=== PATIENT | female | born 1950 | race Caucasian/White ===

== ENCOUNTER 2017-01-19 15:28 | Emergency (ER) | payer MEDICARE ==
[~2017-01-19] VITALS: Ht 157.5 cm; Wt 77.2 kg
[~2017-01-19 15:28] MED LIST: ATEN-102 PO; BIOT5000 PO; CO Q100C PO; CRANCAP11 PO; FEXO60TA PO; GLUCPOW27 PO; ISOMCAP PO; LISI-366 PO; LOTRCRE TOP; MELA5TAB8 PO; OMEP20TA PO; TAB-TAB PO; TAMS0.4C67 PO; ZYRT10TA12 PO
[2017-01-19 15:39] VITALS: BP 103/67; PULSE 62; RESP 18; TEMP 97.7; O2SAT 98
[2017-01-19] MEDS ORDERED: predniSONE 50 MG TAB PO ONE (16:15)
[2017-01-19] MEDS ORDERED: diphenhydrAMINE HCL 25 MG CAP PO ONE (16:15)
--- NOTE | 2017-01-19 16:32 | PD ---
HPI Chief Complaint: Facial Pain or Swelling Time Seen by Provider: 16:05 Travel History International Travel<30 days: No Contact w/Intl Traveler<30days: No Traveled to known affect area: No History of Present Illness HPI Patient is a 66-year-old female who comes in complaining of swelling to her face and her neck after eating lunch today. She says she was eating a ham sandwich and some potato chips when she felt like the sides of her neck started swelling in her throat started swelling. She denies choking or feeling like anything got stuck in her throat. She says she then felt nauseous and cramping of her abdomen. She says this has never happened before. She says she does not think that she ever had any trouble breathing. She says that her lips were swollen at the time as well. She says this happened just prior to coming in. Since that time, she feels like her symptoms have improved, but still feels some swelling to left side of her neck. She says that last night while walking her dog, she's felt like something bit her on the left side of her neck. [facility] Past Medical History Arthritis: Yes Diabetes: Yes Patient Takes Glucophage: No GERD: Yes Hypertension: Yes Kidney Stones: Yes Tetanus Vaccination: Unknown ?: Not Menopausal: Yes Tubal Ligation: Yes Past Surgical History Appendectomy: Yes Cholecystectomy: Yes Hysterectomy: Yes Other Surgery: Yes (kidney stone removal) Social History Alcohol Use: Yes (OCCASIONAL) Tobacco Use: No Substance Use: No Allergies-Medications (Allergen,Severity, Reaction): Coded Allergies: penicillin G (Unverified Allergy, Unknown, 01/19/17) Reported Meds & Prescriptions Reported Meds & Active Scripts Active Review of Systems Except as stated in HPI: all other systems reviewed are Neg General / Constitutional: No: Fever, Chills Eyes: No: Blurred Vision HENT: No: Headaches, Lightheadedness, Neck Stiffness Cardiovascular: No: Chest Pain or Discomfort Respiratory: No: Shortness of Breath Gastrointestinal: Positive: Nausea, No: Vomiting, Abdominal Pain Musculoskeletal: No: Myalgias, Pain Skin: No Rash, No Itching Neurologic: No: Weakness, Dizziness Physical Exam Narrative GENERAL: Awake and alert, in no acute distress. SKIN: Focused skin assessment warm/dry. No rash or bites seen. HEAD: Atraumatic. Normocephalic. EYES: Pupils equal and round. No scleral icterus. ENT: Mucous membranes pink and moist. No swelling of the lips or tongue or posterior pharynx. NECK: Trachea midline. No JVD. CARDIOVASCULAR: Regular rate and rhythm. No murmur appreciated. RESPIRATORY: No accessory muscle use. Clear to auscultation. Breath sounds equal bilaterally. GASTROINTESTINAL: Abdomen soft, non-tender, nondistended. MUSCULOSKELETAL: No obvious deformities. No clubbing. No cyanosis. No edema. NEUROLOGICAL: Awake and alert. No obvious cranial nerve deficits. Motor grossly within normal limits. Normal speech. PSYCHIATRIC: Appropriate mood and affect; insight and judgment normal. Data Data Last Documented VS Vital Signs Date Time Temp Pulse Resp B/P (MAP) Pulse Ox O2 Delivery O2 Flow Rate FiO2 01/19/17 15:39 97.7 62 18 103/67 (79) 98 Orders Orders Diphenhydramine (Benadryl) (01/19/17 16:15) Prednisone (Deltasone) (01/19/17 16:15) Ondansetron Odt (Zofran Odt) (01/19/17 16:45) MDM Medical Decision Making Medical Screen Exam Complete: Yes Emergency Medical Condition: Yes Medical Record Reviewed: Yes Differential Diagnosis Allergic reaction versus insect bite versus viral illness Narrative Course Patient is a 66-year-old female comes in complaining of swelling to her neck and face after eating lunch. She says the swelling has improved, her significant other states he can still see swelling to left side of her neck. There is no evidence of swelling of her airway or any airway compromise. Patient given a Benadryl and a dose of prednisone. Observed in the emergency department. Patient had no further issues with swelling. She never had any airway issues. She reports feeling better. She'll be discharged with a short course of steroids. She is advised this may raise her blood sugar, and to monitor this. Advised to take Benadryl as needed for itching or allergic reaction. Advised to monitor what she consumes to see if she develops a reaction. Advised follow- up with her doctor. Advised to return to the ED as needed for any worsening symptoms. Diagnosis Primary Impression: Allergic reaction Qualified Codes: T78.40XA - Allergy, unspecified, initial encounter Patient Instructions: General Allergic Reaction (ED), General Instructions Additional Instructions: Monitor what you are eating and drinking to see if he develops a reaction to it. Return immediately if you have any swelling to her face or mouth or any difficulty breathing. Take the steroids starting tomorrow. Take Benadryl as needed for any symptoms of allergies. Drink plenty of fluids. Monitor your blood sugar is a steroids will likely raise your blood sugar over the next few days. Return to the ED as needed for any worsening symptoms. Follow-up with your primary care doctor. Scripts Prednisone (Prednisone) 50 Mg Tab 50 MG PO DAILY for 3 Days, #3 TAB 0 Refills Prov: Delaney Dyer MD 01/19/17 Disposition: 01 DISCHARGE HOME Condition: Stable Delaney Dyer MD Jan 19, 2017 16:32
[2017-01-19] MEDS ORDERED: ONDANSETRON ODT 4 MG TAB PO ONE (16:45)
[2017-01-19 17:25] VITALS: BP 128/40; PULSE 69; RESP 17; O2SAT 95
[2017-01-19] MEDS ORDERED: PRED50 PO (17:43)
== END 2017-01-19 18:05 | disposition home or self-care (01) ==
LOC: PHED 15:28
DX: T78.40XA Allergy, unspecified, initial encounter (principal)
CPT/HCPCS: 99283; J7512